=== PATIENT | female | born 1950 | race Caucasian/White ===

== ENCOUNTER → 2020-04-25 | Outpatient (CLI) | payer MEDICARE, OTHER ==
[~2020-04-25] MED LIST: CALC-126 PO; CIPR250T27 PO; ERGO400T2 PO; ESTR0.45 PO; LANS30CA PO; LEVO100T PO; MULT-642 PO; ONDA4TAB7 PO; OXYC-302 PO; SIMV10TA18 PO; VALS160T3 PO
== END | disposition home or self-care (01) ==
LOC: STAR 10:45
PROVIDERS: ATTEND Surgery
DX: Z01.818 Encounter for other preprocedural examination (principal); K40.90 Unilateral inguinal hernia, without obstruction or gangrene, not specified as recurrent
CPT/HCPCS: 93005

== ENCOUNTER → 2020-04-28 | Outpatient (CLI) | payer MEDICARE, OTHER | END | disposition home or self-care (01) | LOC: STAR 13:40 | PROVIDERS: ATTEND Anesthesiology | DX: Z01.812 Encounter for preprocedural laboratory examination (principal); Z20.828 Contact with and (suspected) exposure to other viral communicable diseases | CPT/HCPCS: 36415; 87635 ==

== ENCOUNTER 2020-05-03 10:32 | Day surgery (SDC) | payer MEDICARE, OTHER ==
[~2020-05-03] VITALS: Ht 160 cm; Wt 67.7 kg
[2020-05-03 11:44] VITALS: BP 161/92
[2020-05-03] MEDS ORDERED: LACTATED RINGERS 1,000 ML IV SCH (11:47)
[2020-05-03] MEDS ORDERED: CHLORHEXIDINE 15 ML UDC MM ONE (12:00)
[2020-05-03] MEDS ORDERED: FENTANYL PF 100 MCG/2ML ONE ×2 (12:14→14:28)
[2020-05-03] MEDS ORDERED: MIDAZOLAM 1 MG/ML, 2ML ONE (12:14)
[2020-05-03] MEDS ORDERED: BUPIVACAINE/PF 0.5% ONE (12:53)
[2020-05-03] MEDS ORDERED: CEFAZOLIN 1,000 MG ONE (13:21)
[2020-05-03] MEDS ORDERED: KETOROLAC 30 MG/1 ML ONE (13:21)
[2020-05-03] MEDS ORDERED: PROPOFOL 10 MG/ML, 20ML ONE (13:21)
[2020-05-03] MEDS ORDERED: ROCURONIUM 10 MG/ML,10ML ONE (13:21)
[2020-05-03] MEDS ORDERED: DEXAMETHASONE 4 MG/ML, 5ML ONE (13:21)
[2020-05-03] MEDS ORDERED: GLYCOPYRROLATE 0.2MG/1ML, 5ML ONE (13:21)
[2020-05-03] MEDS ORDERED: ONDANSETRON 2MG/ML, 2ML ONE (13:21)
[2020-05-03] MEDS ORDERED: NEOSTIGMINE 1 MG/ML, 10ML ONE (13:21)
[2020-05-03] MEDS ORDERED: DIAZEPAM 5 MG/ML, 2ML IVPush PRN (13:30)
[2020-05-03] MEDS ORDERED: FENTANYL PF 100 MCG/2ML IV PRN (13:30)
[2020-05-03] MEDS ORDERED: ACETAMINOPHEN 325 MG TABLET PO PRN (13:30)
[2020-05-03] MEDS ORDERED: ONDANSETRON 2MG/ML, 2ML IVPush PRN ×2 (13:30→14:30)
[2020-05-03] MEDS ORDERED: HYDROmorphone 1 MG/ML, 1ML INJ IVPush PRN (13:30)
[2020-05-03] MEDS ORDERED: MEPERIDINE/PF 25MG/0.5ML IVPush PRN (13:30)
[2020-05-03] MEDS ORDERED: DIPHENHYDRAMINE 50 MG/ML, 1ML IVPush PRN (13:30)
[2020-05-03] MEDS ORDERED: PROMETHAZINE 25 MG/ML, 1ML IVPush PRN (13:30)
[2020-05-03] MEDS ORDERED: OXYcodone 5 MG/5 ML ORAL.SOL UDC PO PRN (13:30)
[2020-05-03] MEDS ORDERED: OXYcodone 5 MG/5 ML ORAL.SOL UDC ONE (14:28)
[2020-05-03] MEDS ORDERED: OXYcodone/APAP 5/325MG TABLET PO PRN (14:30)
[2020-05-03] MEDS ORDERED: KETOROLAC 30 MG/1 ML IVPush PRN (14:30)
[2020-05-03] MEDS ORDERED: morphine SULFATE 10 MG/ML, 1ML IVPush PRN (14:30)
[2020-05-03] MEDS ORDERED: IBUPROFEN 600 MG TABLET PO SCH (16:00)
== END 2020-05-03 16:55 | disposition home or self-care (01) ==
LOC: OUT 10:32
PROVIDERS: ATTEND Surgery
DX: K40.90 Unilateral inguinal hernia, without obstruction or gangrene, not specified as recurrent (principal); K66.0 Peritoneal adhesions (postprocedural) (postinfection); E03.9 Hypothyroidism, unspecified; M10.9 Gout, unspecified; F17.210 Nicotine dependence, cigarettes, uncomplicated; Z79.890 Hormone replacement therapy; Z79.899 Other long term (current) drug therapy; Z98.890 Other specified postprocedural states
CPT/HCPCS: 49650; C1781; J0690; J1100; J1885; J2250; J2405; J2704; J2710; J3010; J7120